=== PATIENT | female | born 1985 | race Caucasian/White ===

== ENCOUNTER 2017-12-17 10:58 | Emergency (ER) | payer BC, OTHER ==
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
[2017-12-17 12:19] VITALS: BP 120/78
== END 2017-12-17 12:16 | disposition home or self-care (01) ==
LOC: MW.ED 10:58
DX: Z34.92 Encounter for supervision of normal pregnancy, unspecified, second trimester (principal); F17.210 Nicotine dependence, cigarettes, uncomplicated; Z79.899 Other long term (current) drug therapy; Z3A.18 18 weeks gestation of pregnancy
CPT/HCPCS: 76815; 76815-26; 99283

== ENCOUNTER 2018-04-25 17:06 | Inpatient (IN) | payer BC, OTHER ==
[2018-04-25] MEDS ORDERED: Sodium Chloride 0.9% 2.5 ML Syringe FLUSH PRN ×2 (20:26→21:02)
[2018-04-25] MEDS ORDERED: Nalbuphine 10 MG/1 ML Vial IVPUSH PRN (20:26)
[2018-04-25] MEDS ORDERED: Lidocaine 1% 50 ML MDV INJECT PRN (20:26)
[2018-04-25] MEDS ORDERED: Butorphanol 1 MG/ML SDV IVPUSH PRN (20:26)
[2018-04-25] MEDS ORDERED: Misoprostol 200 MCG Tab PO PRN (20:26)
[2018-04-25] MEDS ORDERED: Carboprost Tromethamine 250 MCG/1 ML Amp IM PRN (20:26)
[2018-04-25] MEDS ORDERED: Tranexamic Acid 1,000 MG in Sodium Chloride 0.9% 100 ML IV PRN (20:26)
[2018-04-25] MEDS ORDERED: Water For Irrigation,Sterile 1,000 ML Container IRR PRN (20:26)
[2018-04-25] MEDS ORDERED: Methylergonovine 0.2 MG/1 ML Amp IM PRN (20:26)
[2018-04-25] MEDS ORDERED: Sodium Chloride 0.9% 10 ML Syringe FLUSH PRN ×2 (20:26→21:02)
[2018-04-25] MEDS ORDERED: Oxytocin/0.9 % Sodium Chloride 30 UNIT/500 ML BAG IV SCH ×2 (20:30→21:15)
[2018-04-25] MEDS: Lactated Ringers 1,000 ML IV SCH ×2 (20:42→21:18)
[2018-04-25] MEDS ORDERED: ceFAZolin 2 GM in Premix Bag 1 BAG IV ONE (21:02)
[2018-04-25] MEDS ORDERED: Citric Acid/Sodium Citrate Solution 30 ML Cup PO SCH (21:15)
[2018-04-25] MEDS ORDERED: Lactated Ringers 1,000 ML IV SCH ×2 (21:15→23:00)
[2018-04-25] MEDS ORDERED: ceFAZolin 1 GM Vial ONE ×2 (21:43)
[2018-04-25] MEDS ORDERED: Ondansetron 4 MG/2 ML SDV ONE (21:43)
[2018-04-25] MEDS ORDERED: Oxytocin 10 Units/1 ML SDV ONE (21:43)
[2018-04-25] MEDS ORDERED: Morphine PF 1 MG/ML Amp ONE (21:43)
[2018-04-25] MEDS ORDERED: ePHEDrine 50 MG/ML SDV ONE (21:43)
[2018-04-25] MEDS ORDERED: Sodium Chloride 0.9% 20 ML ONE ×2 (21:43)
--- NOTE | 2018-04-25 21:54 | PCM.PREANE ---
Preanesthetic Assessment - Procedure Proposed Procedure: primary - Anesthesia/Transfusion/Family Hx Anesthesia History: Prior Anesthesia Without Reaction Family History of Anesthesia Reaction: No Intubation History: Unknown - Review of Systems General: Other (active labor; intolerant) Pulmonary: No Symptoms Cardiovascular: No Symptoms Gastrointestinal: Other (GERD) Neurological: Other (acive labor contractions) Other: Reports: Diabetes (gestational; arrival glucose 50s and kacie 80s) - Physical Assessment NPO Status Date: 04/25/18 NPO Status Time: 15:00 Height: 5 ft 4 in Weight: 238 lb ASA Class: 2E Mental Status: Alert & Oriented x3 Airway Class: Mallampati = 2 Dentition: Reports: Normal Dentition Thyro-Mental Finger Breadths: 3 Mouth Opening Finger Breadths: 3 ROM/Head Extension: Full Lungs: Clear to Auscultation, Normal Respiratory Effort Cardiovascular: Regular Rate, Regular Rhythm, No Murmurs - Lab Values: Laboratory Last Values WBC 17.00 K/uL (4.0-11.0) H 04/25/18 20:38 RBC 4.41 M/uL (4.30-5.90) 04/25/18 20:38 Hgb 13.1 g/dL (12.0-16.0) 04/25/18 20:38 Hct 38.5 % (36.0-46.0) 04/25/18 20:38 MCV 87.3 fL (80.0-98.0) 04/25/18 20:38 MCH 29.7 pg (27.0-32.0) 04/25/18 20:38 MCHC 34.0 g/dL (31.0-37.0) 04/25/18 20:38 RDW Std Deviation 42.5 fl (28.0-62.0) 04/25/18 20:38 RDW Coeff of Fuentes 13 % (11.0-15.0) 04/25/18 20:38 Plt Count 255 K/uL (150-400) 04/25/18 20:38 MPV 10.50 fL (7.40-12.00) 04/25/18 20:38 Nucleated RBC % 0.0 /100WBC 04/25/18 20:38 Nucleated RBCs # 0 K/uL 04/25/18 20:38 POC Glucose 82 mg/dL (60-110) 04/25/18 21:14 Hemoglobin A1c 6.2 % (4.5-6.2) 04/25/18 20:38 - Allergies Allergies/Adverse Reactions: Allergies Allergy/AdvReac Type Severity Reaction Status Date / Time No Known Allergies Allergy Verified 04/25/18 17:37 - Blood Blood Available: No - Anesthesia Plan Pre-Op Medication Ordered: None (Emergent without chart visualized; exam and discussion in short bits with and patient) - Acknowledgements Anesthesia Type Planned: Spinal Pt an Appropriate Candidate for the Planned Anesthesia: Yes Alternatives and Risks of Anesthesia Discussed w Pt/Guardian: Yes Pt/Guardian Understands and Agrees with Anesthesia Plan: Yes PreAnesthesia Questionnaire HEENT History: Reports: None Cardiovascular History: Reports: None Respiratory History: Reports: None Gastrointestinal History: Reports: None Genitourinary History: Reports: Renal Calculus 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: Musculoskeletal History: Reports: None Neurological History: Reports: None Psychiatric History: Reports: None Endocrine/Metabolic History: Reports: Diabetes, Gestational Hematologic History: Reports: None Immunologic History: Reports: None Oncologic (Cancer) History: Reports: None Dermatologic History: Reports: None - Infectious Disease History Infectious Disease History: Reports: Chicken Pox - Past Surgical History Head Surgeries/Procedures: Reports: None HEENT Surgical History: Reports: None Cardiovascular Surgical History: Reports: None Respiratory Surgical History: Reports: None GI Surgical History: Reports: None Female Surgical History: Reports: None Endocrine Surgical History: Reports: None Neurological Surgical History: Reports: None Musculoskeletal Surgical History: Reports: None Oncologic Surgical History: Reports: None Dermatological Surgical History: Reports: None - HOME MEDS Home Medications: Home Meds glyBURIDE [Micronase] 2.5 mg PO BEDTIME 12/17/17 [History] glyBURIDE [Micronase] 7.5 mg PO ACBREAKFAST 12/17/17 [History] Loratadine [Claritin] 10 mg PO DAILY 04/17/18 [History] Vit W-Ca,Fe,FA(<1 mg) [ Vitamins] 1 tab PO DAILY 04/17/18 [ History] - CURRENT (IN HOUSE) MEDS Current Meds: Current Medications Butorphanol Tartrate (Stadol) 1 mg IVPUSH Q1H PRN PRN Reason: Pain Carboprost Tromethamine (Hemabate Ds) 250 mcg IM ASDIRECTED PRN PRN Reason: Post Hemorrhage Citric Acid/Sodium Citrate (Bicitra Solution) 30 ml PO .ONCE RENÉ Tranexamic Acid 1,000 mg/ (Sodium Chloride) 110 mls @ 660 mls/hr IV ONETIME PRN PRN Reason: Bleeding Lactated Ringer's (Ringers, Lactated) 1,000 mls @ 150 mls/hr IV ASDIRECTED [facility] Last Admin: 04/25/18 21:18 Dose: 999 mls/hr Oxytocin/Sodium Chloride (Oxytocin 30 Unit/500 Ml-Ns) 30 unit in 500 mls @ 999 mls/hr IV TITRATE RENÉ Oxytocin/Sodium Chloride (Oxytocin 30 Unit/500 Ml-Ns) 30 unit in 500 mls @ 250 mls/hr IV TITRATE RENÉ Lactated Ringer's (Ringers, Lactated) 1,000 mls @ 500 mls/hr IV .BOLUS RENÉ Lidocaine HCl (Xylocaine 1%) 50 ml INJECT .ONCE PRN PRN Reason: Laceration repair Methylergonovine Maleate (Methergine) 0.2 mg IM ASDIRECTED PRN PRN Reason: Post Hemorrhage Misoprostol (Cytotec) 200 mcg PO .ONCE PRN PRN Reason: Post Hemorrhage Nalbuphine HCl (Nubain) 10 mg IVPUSH Q1H PRN PRN Reason: Pain (severe 7-10) Sodium Chloride (Saline Flush) 10 ml FLUSH ASDIRECTED PRN PRN Reason: Keep Vein Open Sodium Chloride (Saline Flush) 2.5 ml FLUSH ASDIRECTED PRN PRN Reason: Keep Vein Open Sodium Chloride (Saline Flush) 10 ml FLUSH ASDIRECTED PRN PRN Reason: Keep Vein Open Sodium Chloride (Saline Flush) 2.5 ml FLUSH ASDIRECTED PRN PRN Reason: Keep Vein Open Sterile Water (Sterile Water For Irrigation) 1,000 ml IRR ASDIRECTED PRN PRN Reason: delivery Discontinued Medications Cefazolin Sodium (Ancef) Confirm Administered Dose 2 gm .ROUTE .STK-MED ONE Stop: 04/25/18 21:44 Cefazolin Sodium (Ancef) Confirm Administered Dose 1 gm .ROUTE .STK-MED ONE Stop: 04/25/18 21:44 Ephedrine Sulfate (Ephedrine Sulfate) Confirm Administered Dose 50 mg .ROUTE .STK-MED ONE Stop: 04/25/18 21:44 Cefazolin Sodium/Dextrose 2 gm (/ Premix) 50 mls @ 100 mls/hr IV ONETIME ONE Stop: 04/25/18 21:31 Sodium Chloride (Normal Saline) Confirm Administered Dose 20 mls @ as directed .ROUTE .STK-MED ONE Stop: 04/25/18 21:44 Sodium Chloride (Normal Saline) Confirm Administered Dose 20 mls @ as directed .ROUTE .STK-MED ONE Stop: 04/25/18 21:44 Morphine Sulfate (Duramorph Pf) Confirm Administered Dose 1 mg .ROUTE .STK-MED ONE Stop: 04/25/18 21:44 Ondansetron HCl (Zofran) Confirm Administered Dose 4 mg .ROUTE .STK-MED ONE Stop: 04/25/18 21:44 Oxytocin (Pitocin) Confirm Administered Dose 20 unit .ROUTE .STK-MED ONE Stop: 04/25/18 21:44
[2018-04-25] MEDS ORDERED: Naloxone 0.4 MG/ML Syringe IVPUSH PRN (21:58)
[2018-04-25] MEDS ORDERED: fentaNYL 100 MCG/2 ML SDV ONE (22:15)
[2018-04-25] MEDS ORDERED: Metoclopramide 10 MG/2 ML SDV ONE (22:19)
[2018-04-25] MEDS ORDERED: diphenhydrAMINE 50 MG/ML SDV IVPUSH PRN (22:53)
[2018-04-25] MEDS ORDERED: Lanolin 100% Cream 7 GM Tube TOP PRN (22:53)
[2018-04-25] MEDS ORDERED: Bisacodyl 10 MG Supp RECTAL PRN (22:53)
[2018-04-25] MEDS ORDERED: Acetaminophen/oxyCODONE 325-5 MG Tab PO PRN ×2 (22:53)
--- NOTE | 2018-04-25 23:14 | PCM.OPNOTE ---
- General Post-Op/Procedure Note Date of Surgery/Procedure: 04/25/18 Operative Procedure(s): Primary Findings: Mle , Wt 9lbs 13oz, Apgars 8 and 9. Copious amount of free fluid. No nuchal cord. Grossly normal placenta with 3 vessel cord. Normal uterus, tubes and ovaries Pre Op Diagnosis: 1) IUP 37weeks adn 1 day, active labor. 2)Suspected macrosomia,. 3) Polyhydramnios. 4) GDMA2 on glyburide Post-Op Diagnosis: Same Anesthesia Technique: Spinal Primary Surgeon: Ellie Zurita Pathology: Placenta Fluid Replacement, Intraop: 2,200 Output, Urine Amount: 175 EBL in mLs: 800 Complications: None Condition: Good
--- NOTE | 2018-04-25 23:22 | PCM.POSTAN ---
POST ANESTHESIA ASSESSMENT - MENTAL STATUS Mental Status: Alert, Oriented - RESPIRATORY Respiratory Status: Respiratory Rate WNL, Airway Patent, O2 Saturation Stable - CARDIOVASCULAR CV Status: Pulse Rate WNL, Blood Pressure Stable - GASTROINTESTINAL GI Status: No Symptoms - PAIN Pain Score: 0 - POST OP HYDRATION Hydration Status: Adequate & Stable
[2018-04-25] MEDS: Ketorolac 30 MG/ML SDV IVPUSH SCH (23:44)
--- NOTE | 2018-04-26 01:01 | OR ---
SURGEON: Ellie Zurita MD DATE OF PROCEDURE: 04/25/2018 PREOPERATIVE DIAGNOSES: 1. Intrauterine at 37 weeks and 1 day in active labor. 2. Suspected macrosomia. 3. Polyhydramnios. 4. Gestational diabetes, glyburide controlled. POSTOPERATIVE DIAGNOSES: 1. Intrauterine at 37 weeks and 1 day in active labor. 2. Polyhydramnios. 3. Gestational diabetes, glyburide controlled. 4. Macrosomic baby 5. Delivered. PROCEDURE: Primary section. ANESTHESIA: Spinal. ESTIMATED BLOOD LOSS: 800 mL. IV FLUIDS: 2200 mL of crystalloid. URINE OUTPUT: 175 mL clear at the end of the procedure. COMPLICATIONS: None. DISPOSITION: The patient was stable to recovery room. FINDINGS: Male , weight 9 pounds 13 ounces. scores 8 and 9 at one and five minutes respectively. Grossly normal placenta with 3-vessel cord. Normal- appearing uterus, tubes, and ovary. BRIEF HISTORY: The patient is a G5, P3, who was admitted in early stages of labor at about 5: 30pm this evening at 37 weeks and 1 day gestation. She was re-examined 2 hours later, she had made progress to 5 cm from an earlier vaginal examination of 2 cm. The patient's care is complicated by gestational diabetes controlled on glyburide which is complicated by polyhydramnios (LAWRENCE was 35 cm on a biophysical profile performed within the last 24 hours for an non reactive NST ). The patient was also diagnosed with suspected macrosomia with an estimated weight on ultrasound at 36 weeks and 6 days of 10 pounds 8 ounces. The patient reported that she had originally been scheduled for her induction of labor on the and a primary section on the pending further discussion with her provider,Dr. Montoya at the clinic. She was velvet every 1 to 3 minutes with a reassuring heart tracing. Based on the estimated weight at this gestational age, I discussed the increased risk of shoulder dystocia with a vaginal delivery with the couple and the alternative mode of delivery, a section, risks and benefits given the variables encountered. I explained to the couple that even though sonographic estimation of weight could be off by 20%, in the 3rd trimester, there is a well-known correlation of an increased risk of shoulder dystocia with fetuses measuring over 4000 g especially in a diabetic mother with what seemed to be a poor control based on her polyhydramnios and also a hemoglobin A1c of 6.2. After extensive discussion with the couple, they accepted to proceed with a section. Appropriate consent was obtained. DESCRIPTION OF PROCEDURE: The patient was taken to the operating room, where a spinal anesthesia was performed and found to be adequate. She was then placed in dorsal supine position with a leftward tilt and prepped and draped in a sterile fashion for a section. SCDs were in place and she received 2 g of Ancef. A time-out was held. Due to the extensive pannus and the anterior abdominal wall edema, I elected to perform the low abdominal transverse incision to reduce the risk of dehiscence. The incision type had been discussed with patient preoperatively. This incision was made with a scalpel approximately 2 fingerbreadths below the umbilicus. The incision was approximately 12 cm long and was carried down carefully to the fascia which was scored in the midline and extended laterally with the Reveles scissors. The superior aspect of the fascial incision was grasped with Aliyah clamps, elevated, and the underlying rectus muscle was dissected off with the Reveles. Attention was then turned to the inferior aspect of the fascial incision, which in similar fashion was grasped with Aliyah clamps, elevated and the underlying rectus muscles was dissected off with the Reveles. The rectus muscle was then in the midline until the parietal peritoneum was reached. The peritoneum was then entered sharply and then extended upwards and downwards with good visualization of the internal organs. The peritoneal incision was also further extended laterally by stretching. A self-retaining Clem O retractor was then placed into the abdominal cavity. The vesicouterine peritoneum was identified, picked up, and entered sharply with the Metzenbaum scissors and a bladder flap was created digitally. This was pushed down further. A low transverse uterine incision was made with a scalpel and extended upwards and downwards bluntly. Large amount amount of amniotic fluid was noted. The 's head was then lifted out of the pelvis and delivered atraumatically. The shoulders and the rest of the baby were then delivered atraumatically. The was vigorous and cried spontaneously at . The cord was double clamped and the infant was handed over to Dr. Todd, the wheel and axle inspector on-call. Cord blood and gas samples were obtained. The placenta was then removed spontaneously. The uterine cavity was cleaned of all clots and debris. The hysterotomy site was inspected and no extensions were noted. The hysterotomy site was then repaired in 2 layers using 0 Vicryl suture. The first layer was repaired in a running locked stitches and a second imbricating layer was performed to obtain excellent hemostasis. The ovaries and tubes were examined and found to be grossly normal in appearance. Copious irrigation was performed and the Clem O retractor was removed. The edges of the parietal peritoneum were identified and this layer was closed with 2-0 Vicryl in a running fashion. Further irrigation of the subfascial layer was performed and this was found to have excellent hemostasis. The edges of the fascia were identified and the fascia was closed in a running fashion with an 0 PDS suture. Subcutaneous tissue was made hemostatic with electrocautery. The subcutaneous layer was then reapproximated with 3-0 plain suture. The skin was closed with 4-0 Monocryl with subcuticular stitches. The patient tolerated the procedure well. Sponge, instrument, and needle counts were correct at the end of the procedure. The baby was taken to the nursery in stable condition and the patient to the recovery room. SHANTI / KIANNA /[id number] LAURITA
[2018-04-26] MEDS: Ondansetron 4 MG/2 ML SDV IV PRN ×2 (04:44→13:27)
[2018-04-26] MEDS: Ketorolac 30 MG/ML SDV IVPUSH SCH ×4 (05:08→23:26)
--- NOTE | 2018-04-26 08:47 | PCM.PNPP ---
- General Info Date of Service: 04/26/18 Functional Status: Reports: Pain Controlled, Tolerating Diet, Ambulating - Review of Systems General: Denies: Fever, Malaise, Chills HEENT: Denies: Headaches Pulmonary: Denies: Shortness of Breath, Pleuritic Chest Pain Cardiovascular: Denies: Chest Pain, Palpitations, Dyspnea on Exertion Gastrointestinal: Denies: Abdominal Pain Genitourinary: Denies: Flank Pain Psychiatric: Denies: Confusion, Mood Lability, Anxiety - General Info Date of Service: 04/26/18 - Patient Data Vital Signs - Most Recent: Last Vital Signs Temp 36.4 C 04/26/18 04:30 Pulse 71 04/26/18 06:30 Resp 16 04/26/18 06:30 BP 135/67 04/26/18 04:30 Pulse Ox 95 04/26/18 06:30 Weight - Most Recent: 238 lb I&O - Last 24 Hours: Intake & Output 04/25/18 04/26/18 04/26/18 22:59 06:59 14:59 Intake Total 6100 Output Total 175 1575 Balance -175 4525 Lab Results - Last 24 Hours: Laboratory Results - last 24 hr 04/25/18 04/25/18 04/25/18 Range/Units 20:08 20:38 20:38 WBC 17.00 H (4.0-11.0) K/uL RBC 4.41 (4.30-5.90) M/uL Hgb 13.1 (12.0-16.0) g/dL Hct 38.5 (36.0-46.0) % MCV 87.3 (80.0-98.0) fL MCH 29.7 (27.0-32.0) pg MCHC 34.0 (31.0-37.0) g/dL RDW Std Deviation 42.5 (28.0-62.0) fl RDW Coeff of Fuentes 13 (11.0-15.0) % Plt Count 255 (150-400) K/uL MPV 10.50 (7.40-12.00) fL Nucleated RBC % 0.0 /100WBC Nucleated RBCs # 0 K/uL Cord ABG pH (7.18-7.38) Cord ABG Base Excess (-10--2) Cord VBG pH (7.25-7.45) Cord VBG Base Excess (-10--2) POC Glucose 50 L (60-110) mg/dL Hemoglobin A1c (4.5-6.2) % Blood Type AB POSITIVE Antibody Screen NEGATIVE 04/25/18 04/25/18 04/25/18 Range/Units 20:38 21:14 21:54 WBC (4.0-11.0) K/uL RBC (4.30-5.90) M/uL Hgb (12.0-16.0) g/dL Hct (36.0-46.0) % MCV (80.0-98.0) fL MCH (27.0-32.0) pg MCHC (31.0-37.0) g/dL RDW Std Deviation (28.0-62.0) fl RDW Coeff of Fuentes (11.0-15.0) % Plt Count (150-400) K/uL MPV (7.40-12.00) fL Nucleated RBC % /100WBC Nucleated RBCs # K/uL Cord ABG pH 7.218 (7.18-7.38) Cord ABG Base Excess -5 (-10--2) Cord VBG pH 7.292 (7.25-7.45) Cord VBG Base Excess -4 (-10--2) POC Glucose 82 (60-110) mg/dL Hemoglobin A1c 6.2 (4.5-6.2) % Blood Type Antibody Screen 04/25/18 04/26/18 Range/Units 22:36 08:14 WBC (4.0-11.0) K/uL RBC (4.30-5.90) M/uL Hgb 11.5 L (12.0-16.0) g/dL Hct 33.8 L (36.0-46.0) % MCV (80.0-98.0) fL MCH (27.0-32.0) pg MCHC (31.0-37.0) g/dL RDW Std Deviation (28.0-62.0) fl RDW Coeff of Fuentes (11.0-15.0) % Plt Count (150-400) K/uL MPV (7.40-12.00) fL Nucleated RBC % /100WBC Nucleated RBCs # K/uL Cord ABG pH (7.18-7.38) Cord ABG Base Excess (-10--2) Cord VBG pH (7.25-7.45) Cord VBG Base Excess (-10--2) POC Glucose 89 (60-110) mg/dL Hemoglobin A1c (4.5-6.2) % Blood Type Antibody Screen Med Orders - Current: Current Medications Bisacodyl (Dulcolax) 10 mg RECTAL .ONCE PRN PRN Reason: Constipation Diphenhydramine HCl (Benadryl) 25 mg IVPUSH Q6H PRN PRN Reason: Itching or Nausea Last Admin: 04/26/18 05:06 Dose: 25 mg Docusate Sodium (Colace) 100 mg PO BID [facility] Emollient Ointment (Lansinoh Hpa) 0 gm TOP ASDIRECTED PRN PRN Reason: Sore Nipples Lactated Ringer's (Ringers, Lactated) 1,000 mls @ 125 mls/hr IV ASDIRECTED [facility] Last Admin: 04/25/18 23:51 Dose: 125 mls/hr Ibuprofen (Motrin) 800 mg PO Q8H PRN PRN Reason: mild pain or fever Ketorolac Tromethamine (Toradol) 30 mg IVPUSH Q6H [facility] Stop: 04/26/18 23:01 Last Admin: 04/26/18 05:08 Dose: 30 mg Naloxone HCl (Narcan) 0.1 mg IVPUSH ONETIME PRN PRN Reason: Respiratory Depression Stop: 04/26/18 21:59 Ondansetron HCl (Zofran) 4 mg IV Q4H PRN PRN Reason: Nausea/Vomiting Last Admin: 04/26/18 04:44 Dose: 4 mg Oxycodone/Acetaminophen (Percocet 325-5 Mg) 1 tab PO Q4H PRN PRN Reason: Pain (moderate 4-6) Oxycodone/Acetaminophen (Percocet 325-5 Mg) 2 tab PO Q4H PRN PRN Reason: Pain (moderate 4-6) Discontinued Medications Butorphanol Tartrate (Stadol) 1 mg IVPUSH Q1H PRN PRN Reason: Pain Carboprost Tromethamine (Hemabate Ds) 250 mcg IM ASDIRECTED PRN PRN Reason: Post Hemorrhage Cefazolin Sodium (Ancef) Confirm Administered Dose 2 gm .ROUTE .STK-MED ONE Stop: 04/25/18 21:44 Cefazolin Sodium (Ancef) Confirm Administered Dose 1 gm .ROUTE .STK-MED ONE Stop: 04/25/18 21:44 Citric Acid/Sodium Citrate (Bicitra Solution) 30 ml PO .ONCE RENÉ Ephedrine Sulfate (Ephedrine Sulfate) Confirm Administered Dose 50 mg .ROUTE .STK-MED ONE Stop: 04/25/18 21:44 Fentanyl (Sublimaze) Confirm Administered Dose 100 mcg .ROUTE .STK-MED ONE Stop: 04/25/18 22:16 Tranexamic Acid 1,000 mg/ (Sodium Chloride) 110 mls @ 660 mls/hr IV ONETIME PRN PRN Reason: Bleeding Lactated Ringer's (Ringers, Lactated) 1,000 mls @ 150 mls/hr IV ASDIRECTED ERNÉ Last Admin: 04/25/18 21:18 Dose: 999 mls/hr Oxytocin/Sodium Chloride (Oxytocin 30 Unit/500 Ml-Ns) 30 unit in 500 mls @ 999 mls/hr IV TITRATE [facility] Cefazolin Sodium/Dextrose 2 gm (/ Premix) 50 mls @ 100 mls/hr IV ONETIME ONE Stop: 04/25/18 21:31 Oxytocin/Sodium Chloride (Oxytocin 30 Unit/500 Ml-Ns) 30 unit in 500 mls @ 250 mls/hr IV TITRATE [facility] Lactated Ringer's (Ringers, Lactated) 1,000 mls @ 500 mls/hr IV .BOLUS [facility] Sodium Chloride (Normal Saline) Confirm Administered Dose 20 mls @ as directed .ROUTE .STK-MED ONE Stop: 04/25/18 21:44 Sodium Chloride (Normal Saline) Confirm Administered Dose 20 mls @ as directed .ROUTE .STK-MED ONE Stop: 04/25/18 21:44 Lidocaine HCl (Xylocaine 1%) 50 ml INJECT .ONCE PRN PRN Reason: Laceration repair Methylergonovine Maleate (Methergine) 0.2 mg IM ASDIRECTED PRN PRN Reason: Post Hemorrhage Metoclopramide HCl (Reglan) Confirm Administered Dose 10 mg .ROUTE .STK-MED ONE Stop: 04/25/18 22:20 Misoprostol (Cytotec) 200 mcg PO .ONCE PRN PRN Reason: Post Hemorrhage Morphine Sulfate (Duramorph Pf) Confirm Administered Dose 1 mg .ROUTE .STK-MED ONE Stop: 04/25/18 21:44 Nalbuphine HCl (Nubain) 10 mg IVPUSH Q1H PRN PRN Reason: Pain (severe 7-10) Ondansetron HCl (Zofran) Confirm Administered Dose 4 mg .ROUTE .STK-MED ONE Stop: 04/25/18 21:44 Oxytocin (Pitocin) Confirm Administered Dose 20 unit .ROUTE .STK-MED ONE Stop: 04/25/18 21:44 Sodium Chloride (Saline Flush) 10 ml FLUSH ASDIRECTED PRN PRN Reason: Keep Vein Open Sodium Chloride (Saline Flush) 2.5 ml FLUSH ASDIRECTED PRN PRN Reason: Keep Vein Open Sodium Chloride (Saline Flush) 10 ml FLUSH ASDIRECTED PRN PRN Reason: Keep Vein Open Sodium Chloride (Saline Flush) 2.5 ml FLUSH ASDIRECTED PRN PRN Reason: Keep Vein Open Sterile Water (Sterile Water For Irrigation) 1,000 ml IRR ASDIRECTED PRN PRN Reason: delivery - Infant Interaction Infant Disposition, : Friona to Nursery Interaction: Unable to Hold Infant at this Time Feeding: Bottle Fed Infant Support Person: - Recovery Exam Fundal Tone: Firm Fundal Level: At Umbilicus Fundal Placement: Midline Lochia Amount: Small Lochia Color: Rubra/Red Perineum Description: Intact, Minimal Bruising/Swelling Bladder Status: Nonpalpable Urinary Elimination: Indwelling Catheter - Exam General: Alert, Oriented Lungs: Clear to Auscultation, Normal Respiratory Effort Cardiovascular: Regular Rate, Regular Rhythm Extremities: Non-Tender, Pedal Edema Wound/Incisions: Dressing Dry and Intact Psy/Mental Status: Alert, Normal Affect, Normal Mood - Problem List & Annotations (1) delivery delivered SNOMED Code(s): 976607135 Code(s): O82 - ENCOUNTER FOR DELIVERY WITHOUT INDICATION Status: Acute Current Visit: Yes (2) macrosomia, delivered, current hospitalization SNOMED Code(s): 74752799, 731608960 Code(s): O36.60X0 - MATERNAL CARE FOR EXCESS GROWTH, UNSP TRIMESTER, UNSP Status: Acute Current Visit: Yes (3) Gestational diabetes mellitus (GDM) during controlled on oral hypoglycemic therapy SNOMED Code(s): 39215275, 67350261, 134263873 Code(s): O24.415 - GESTATNL DIABETES IN PREG, CTRL BY ORAL HYPOGLYCEMIC DRUGS Status: Acute Current Visit: Yes - Problem List Review Problem List Initiated/Reviewed/Updated: Yes - My Orders Last 24 Hours: My Active Orders 04/25/18 20:26 May Shower [RC] ASDIRECTED Notify Provider [RC] PRN Up ad Jennifer [RC] ASDIRECTED 04/25/18 21:03 Notify Provider Vital Signs [RC] PRN 04/25/18 22:53 Patient Status [ADT] Routine Ambulate [RC] PER UNIT ROUTINE Communication Order [RC] PER UNIT ROUTINE May Shower [RC] ASDIRECTED RT Incentive Spirometry [RC] Q2HWA Urinary Catheter Removal [RC] Per Unit Routine Acetaminophen/oxyCODONE [Percocet 325-5 MG] 1 tab PO Q4H PRN Acetaminophen/oxyCODONE [Percocet 325-5 MG] 2 tab PO Q4H PRN Bisacodyl [Dulcolax] 10 mg RECTAL .ONCE PRN Ibuprofen [Motrin] 800 mg PO Q8H PRN Lanolin [Lansinoh HPA] See Dose Instructions TOP ASDIRECTED PRN Ondansetron [Zofran] 4 mg IV Q4H PRN diphenhydrAMINE [Benadryl] 25 mg IVPUSH Q6H PRN Abdominal Binder [OM.PC] Routine Assess Lochia [WOMSER] Per Unit Routine Assess Uterine Involution [WOMSER] Per Unit Routine Breast Pump [WOMSER] Per Unit Routine Peripheral IV Discontinue [OM.PC] Routine Sequential Compression Device [OM.PC] Per Unit Routine Resuscitation Status Routine 04/25/18 22:55 Notify Provider Intake and Out [RC] ASDIRECTED Notify Provider Vital Signs [RC] ASDIRECTED 04/25/18 23:00 Intake and Output [RC] Q4H Ketorolac [Toradol] 30 mg IVPUSH Q6H Lactated Ringers [Ringers, Lactated] 1,000 ml IV ASDIRECTED 04/26/18 09:00 Docusate Sodium [Colace] 100 mg PO BID 04/26/18 Breakfast Regular Diet [DIET] - Assessment Assessment:: POD#1 s/p Primar for macrosomia in a diabetic mother. Doing well this morning. Post op hgb 11.3g/dl - Plan Plan:: Remove colin, ambulate ad jennifer. Continue current care
--- NOTE | 2018-04-26 08:54 | PCM48HPAN ---
Post Anesthesia Note - EVALUATION WITHIN 48HRS OF ANESTHETIC Vital Signs in Normal Range: Yes Patient Participated in Evaluation: Yes Respiratory Function Stable: Yes Airway Patent: Yes Cardiovascular Function Stable: Yes Hydration Status Stable: Yes Pain Control Satisfactory: Yes Nausea and Vomiting Control Satisfactory: Yes Mental Status Recovered: Yes Resp Rate: 16
[2018-04-26] MEDS: Docusate Sodium 100 MG Cap PO SCH ×2 (15:57→21:30)
[2018-04-27] MEDS: Docusate Sodium 100 MG Cap PO SCH ×2 (14:07→20:59)
[2018-04-27] MEDS: Ibuprofen 800 MG Tab PO PRN (14:07)
[2018-04-28] MEDS: Ibuprofen 800 MG Tab PO PRN (03:50)
[2018-04-28 08:50] VITALS: BP 144/93
[2018-04-28] MEDS: Docusate Sodium 100 MG Cap PO SCH (08:54)
--- NOTE | 2018-04-28 10:27 | PCM.PNPP ---
- General Info Date of Service: 04/27/18 Functional Status: Reports: Pain Controlled, Tolerating Diet, Ambulating, Urinating - Review of Systems General: Reports: No Symptoms HEENT: Reports: No Symptoms Pulmonary: Reports: No Symptoms Cardiovascular: Reports: No Symptoms Gastrointestinal: Reports: No Symptoms Genitourinary: Reports: No Symptoms Musculoskeletal: Reports: No Symptoms Skin: Reports: No Symptoms Neurological: Reports: No Symptoms Psychiatric: Reports: No Symptoms - General Info Date of Service: 04/28/18 - Patient Data Vital Signs - Most Recent: Last Vital Signs Temp 36.8 C 04/28/18 07:20 Pulse 81 04/28/18 07:20 Resp 18 04/28/18 07:20 BP 144/93 H 04/28/18 07:20 Pulse Ox 96 04/28/18 07:20 Weight - Most Recent: 107.955 kg Med Orders - Current: Current Medications Bisacodyl (Dulcolax) 10 mg RECTAL .ONCE PRN PRN Reason: Constipation Diphenhydramine HCl (Benadryl) 25 mg IVPUSH Q6H PRN PRN Reason: Itching or Nausea Last Admin: 04/26/18 05:06 Dose: 25 mg Docusate Sodium (Colace) 100 mg PO BID RENÉ Last Admin: 04/28/18 08:54 Dose: 100 mg Emollient Ointment (Lansinoh Hpa) 0 gm TOP ASDIRECTED PRN PRN Reason: Sore Nipples Lactated Ringer's (Ringers, Lactated) 1,000 mls @ 125 mls/hr IV ASDIRECTED [facility] Last Admin: 04/25/18 23:51 Dose: 125 mls/hr Ibuprofen (Motrin) 800 mg PO Q8H PRN PRN Reason: mild pain or fever Last Admin: 04/28/18 03:50 Dose: 800 mg Ondansetron HCl (Zofran) 4 mg IV Q4H PRN PRN Reason: Nausea/Vomiting Last Admin: 04/26/18 13:27 Dose: 4 mg Oxycodone/Acetaminophen (Percocet 325-5 Mg) 1 tab PO Q4H PRN PRN Reason: Pain (moderate 4-6) Last Admin: 04/27/18 20:59 Dose: 1 tab Oxycodone/Acetaminophen (Percocet 325-5 Mg) 2 tab PO Q4H PRN PRN Reason: Pain (moderate 4-6) Last Admin: 04/27/18 05:57 Dose: 2 tab Discontinued Medications Butorphanol Tartrate (Stadol) 1 mg IVPUSH Q1H PRN PRN Reason: Pain Carboprost Tromethamine (Hemabate Ds) 250 mcg IM ASDIRECTED PRN PRN Reason: Post Hemorrhage Cefazolin Sodium (Ancef) Confirm Administered Dose 2 gm .ROUTE .STK-MED ONE Stop: 04/25/18 21:44 Cefazolin Sodium (Ancef) Confirm Administered Dose 1 gm .ROUTE .STK-MED ONE Stop: 04/25/18 21:44 Citric Acid/Sodium Citrate (Bicitra Solution) 30 ml PO .ONCE RENÉ Ephedrine Sulfate (Ephedrine Sulfate) Confirm Administered Dose 50 mg .ROUTE .STK-MED ONE Stop: 04/25/18 21:44 Fentanyl (Sublimaze) Confirm Administered Dose 100 mcg .ROUTE .STK-MED ONE Stop: 04/25/18 22:16 Tranexamic Acid 1,000 mg/ (Sodium Chloride) 110 mls @ 660 mls/hr IV ONETIME PRN PRN Reason: Bleeding Lactated Ringer's (Ringers, Lactated) 1,000 mls @ 150 mls/hr IV ASDIRECTED [facility] Last Admin: 04/25/18 21:18 Dose: 999 mls/hr Oxytocin/Sodium Chloride (Oxytocin 30 Unit/500 Ml-Ns) 30 unit in 500 mls @ 999 mls/hr IV TITRATE RENÉ Cefazolin Sodium/Dextrose 2 gm (/ Premix) 50 mls @ 100 mls/hr IV ONETIME ONE Stop: 04/25/18 21:31 Oxytocin/Sodium Chloride (Oxytocin 30 Unit/500 Ml-Ns) 30 unit in 500 mls @ 250 mls/hr IV TITRATE REN[facility] Lactated Ringer's (Ringers, Lactated) 1,000 mls @ 500 mls/hr IV .BOLUS RENÉ Sodium Chloride (Normal Saline) Confirm Administered Dose 20 mls @ as directed .ROUTE .STK-MED ONE Stop: 04/25/18 21:44 Sodium Chloride (Normal Saline) Confirm Administered Dose 20 mls @ as directed .ROUTE .STK-MED ONE Stop: 04/25/18 21:44 Ketorolac Tromethamine (Toradol) 30 mg IVPUSH Q6H [facility] Stop: 04/26/18 23:01 Last Admin: 04/26/18 23:26 Dose: 30 mg Lidocaine HCl (Xylocaine 1%) 50 ml INJECT .ONCE PRN PRN Reason: Laceration repair Methylergonovine Maleate (Methergine) 0.2 mg IM ASDIRECTED PRN PRN Reason: Post Hemorrhage Metoclopramide HCl (Reglan) Confirm Administered Dose 10 mg .ROUTE .STK-MED ONE Stop: 04/25/18 22:20 Misoprostol (Cytotec) 200 mcg PO .ONCE PRN PRN Reason: Post Hemorrhage Morphine Sulfate (Duramorph Pf) Confirm Administered Dose 1 mg .ROUTE .STK-MED ONE Stop: 04/25/18 21:44 Nalbuphine HCl (Nubain) 10 mg IVPUSH Q1H PRN PRN Reason: Pain (severe 7-10) Naloxone HCl (Narcan) 0.1 mg IVPUSH ONETIME PRN PRN Reason: Respiratory Depression Stop: 04/26/18 21:59 Ondansetron HCl (Zofran) Confirm Administered Dose 4 mg .ROUTE .STK-MED ONE Stop: 04/25/18 21:44 Oxytocin (Pitocin) Confirm Administered Dose 20 unit .ROUTE .STK-MED ONE Stop: 04/25/18 21:44 Sodium Chloride (Saline Flush) 10 ml FLUSH ASDIRECTED PRN PRN Reason: Keep Vein Open Sodium Chloride (Saline Flush) 2.5 ml FLUSH ASDIRECTED PRN PRN Reason: Keep Vein Open Sodium Chloride (Saline Flush) 10 ml FLUSH ASDIRECTED PRN PRN Reason: Keep Vein Open Sodium Chloride (Saline Flush) 2.5 ml FLUSH ASDIRECTED PRN PRN Reason: Keep Vein Open Sterile Water (Sterile Water For Irrigation) 1,000 ml IRR ASDIRECTED PRN PRN Reason: delivery - Interaction Infant Disposition, : to Nursery Infant Interaction: Unable to Hold at this Time Infant Feeding: Bottle Fed Infant Support Person: - Recovery Exam Fundal Tone: Firm Fundal Level: 1 Fingerbreadths Below Umbilicus Fundal Placement: Midline Lochia Amount: Scant Lochia Color: Rubra/Red Perineum Description: Intact, Minimal Bruising/Swelling Episiotomy/Laceration: None Bladder Status: Voiding Urinary Elimination: Voided - Exam General: Alert, Oriented, Cooperative, No Acute Distress Lungs: Clear to Auscultation, Normal Respiratory Effort Cardiovascular: Regular Rate, Regular Rhythm, No Murmurs GI/Abdominal Exam: Normal Bowel Sounds, Soft, Non-Tender, No Organomegaly, No Distention, No Abnormal Bruit, No Mass, Pelvis Stable Extremities: Normal Inspection, Normal Range of Motion, Non-Tender, No Pedal Edema, Normal Capillary Refill Skin: Warm, Dry, Intact Wound/Incisions: Healing Well, Dressing Dry and Intact, No Drainage Neurological: No New Focal Deficit, Normal Gait, Normal Speech, Normal Tone, Strength Equal Bilateral - Problem List & Annotations (1) delivery delivered SNOMED Code(s): 604707864 Code(s): O82 - ENCOUNTER FOR DELIVERY WITHOUT INDICATION Status: Acute Priority: High Current Visit: Yes (2) Gestational diabetes mellitus (GDM) during controlled on oral hypoglycemic therapy SNOMED Code(s): 90607588, 35906706, 245324257 Code(s): O24.415 - GESTATNL DIABETES IN PREG, CTRL BY ORAL HYPOGLYCEMIC DRUGS Status: Acute Priority: High Current Visit: Yes - Problem List Review Problem List Initiated/Reviewed/Updated: Yes - Assessment Assessment:: POD#1 s/p Primar for macrosomia in a diabetic mother. Doing well this morning. Post op hgb 11.3g/dl DOD#2 s/p PCS doing very well, out of bed walking, colin out. Pain well mngd. Dressing intact no drainage in IV due to tachypnea - Plan Plan:: Remove colin, ambulate ad sunil. Continue current care POD#2 Continue pp plan of care
--- NOTE | 2018-04-28 10:32 | PCM.DCSUM1 ---
Discharge Summary - Hospital Course Free Text/Narrative:: Discharge home with infant. Follow up 1wk for post op check and then 6 weeks for post . Diagnosis: Stroke: No - Discharge Data Discharge Date: 04/28/18 Discharge Disposition: Home, Self-Care 01 Condition: Good - Discharge Diagnosis/Problem(s) (1) delivery delivered SNOMED Code(s): 786173616 ICD Code: O82 - ENCOUNTER FOR DELIVERY WITHOUT INDICATION Status: Acute Priority: High Current Visit: Yes (2) Gestational diabetes mellitus (GDM) during controlled on oral hypoglycemic therapy SNOMED Code(s): 84139290, [id number], [id number] ICD Code: O24.415 - GESTATNL DIABETES IN PREG, CTRL BY ORAL HYPOGLYCEMIC DRUGS Status: Acute Priority: High Current Visit: Yes - Patient Summary/Data Operative Procedure(s) Performed: Primary - Patient Instructions Diet: Regular Diet as Tolerated Activity: As Tolerated, No Strenuous Activities, Rest and Relax Today Driving: Do Not Drive Showering/Bathing: May Shower, No Tub Bathing/Swimming Wound/Incision Care: Keep Operative Site/Wound Site Clean and Dry Notify Provider of: Fever, Increased Pain, Swelling and Redness, Nausea and/or Vomiting Other/Special Instructions: Nothing per vagina for 6 weeks. Call office if fever over 101 F, uncontrolled pain or bleeding more than a large pad per hour. May use over the counter ibuprofen or Tylenol for pain. Continue to take vitamins while . - Discharge Plan *PRESCRIPTION DRUG MONITORING PROGRAM REVIEWED*: Not Applicable *COPY OF PRESCRIPTION DRUG MONITORING REPORT IN PATIENT TORI: Not Applicable Home Medications: Home Meds glyBURIDE [Micronase] 2.5 mg PO BEDTIME 12/17/17 [History] glyBURIDE [Micronase] 7.5 mg PO ACBREAKFAST 12/17/17 [History] Loratadine [Claritin] 10 mg PO DAILY 04/17/18 [History] Vit W-Ca,Fe,FA(<1 mg) [ Vitamins] 1 tab PO DAILY 04/17/18 [ History] Patient Handouts: Delivery, Care After Referrals: [facility] [Outside] Suzette Mason CNM [Primary Care Provider] - (1 week - May 03 at 9:00 am with Suzette Mason 6 week - June 07 at 10:45 am with Suzette Mason ) - General Info Date of Service: 04/28/18 Functional Status: Reports: Pain Controlled, Tolerating Diet, Ambulating, Urinating - Review of Systems General: Reports: No Symptoms HEENT: Reports: No Symptoms Pulmonary: Reports: No Symptoms Cardiovascular: Reports: No Symptoms Gastrointestinal: Reports: No Symptoms Genitourinary: Reports: No Symptoms Musculoskeletal: Reports: No Symptoms Skin: Reports: No Symptoms Neurological: Reports: No Symptoms Psychiatric: Reports: No Symptoms - Patient Data Vitals - Most Recent: Last Vital Signs Temp 36.8 C 04/28/18 07:20 Pulse 81 04/28/18 07:20 Resp 18 04/28/18 07:20 BP 144/93 H 04/28/18 07:20 Pulse Ox 96 04/28/18 07:20 Weight - Most Recent: 107.955 kg Med Orders - Current: Current Medications Bisacodyl (Dulcolax) 10 mg RECTAL .ONCE PRN PRN Reason: Constipation Diphenhydramine HCl (Benadryl) 25 mg IVPUSH Q6H PRN PRN Reason: Itching or Nausea Last Admin: 04/26/18 05:06 Dose: 25 mg Docusate Sodium (Colace) 100 mg PO BID RENÉ Last Admin: 04/28/18 08:54 Dose: 100 mg Emollient Ointment (Lansinoh Hpa) 0 gm TOP ASDIRECTED PRN PRN Reason: Sore Nipples Lactated Ringer's (Ringers, Lactated) 1,000 mls @ 125 mls/hr IV ASDIRECTED [facility] Last Admin: 04/25/18 23:51 Dose: 125 mls/hr Ibuprofen (Motrin) 800 mg PO Q8H PRN PRN Reason: mild pain or fever Last Admin: 04/28/18 03:50 Dose: 800 mg Ondansetron HCl (Zofran) 4 mg IV Q4H PRN PRN Reason: Nausea/Vomiting Last Admin: 04/26/18 13:27 Dose: 4 mg Oxycodone/Acetaminophen (Percocet 325-5 Mg) 1 tab PO Q4H PRN PRN Reason: Pain (moderate 4-6) Last Admin: 04/27/18 20:59 Dose: 1 tab Oxycodone/Acetaminophen (Percocet 325-5 Mg) 2 tab PO Q4H PRN PRN Reason: Pain (moderate 4-6) Last Admin: 04/27/18 05:57 Dose: 2 tab Discontinued Medications Butorphanol Tartrate (Stadol) 1 mg IVPUSH Q1H PRN PRN Reason: Pain Carboprost Tromethamine (Hemabate Ds) 250 mcg IM ASDIRECTED PRN PRN Reason: Post Hemorrhage Cefazolin Sodium (Ancef) Confirm Administered Dose 2 gm .ROUTE .STK-MED ONE Stop: 04/25/18 21:44 Cefazolin Sodium (Ancef) Confirm Administered Dose 1 gm .ROUTE .STK-MED ONE Stop: 04/25/18 21:44 Citric Acid/Sodium Citrate (Bicitra Solution) 30 ml PO .ONCE RENÉ Ephedrine Sulfate (Ephedrine Sulfate) Confirm Administered Dose 50 mg .ROUTE .STK-MED ONE Stop: 04/25/18 21:44 Fentanyl (Sublimaze) Confirm Administered Dose 100 mcg .ROUTE .STK-MED ONE Stop: 04/25/18 22:16 Tranexamic Acid 1,000 mg/ (Sodium Chloride) 110 mls @ 660 mls/hr IV ONETIME PRN PRN Reason: Bleeding Lactated Ringer's (Ringers, Lactated) 1,000 mls @ 150 mls/hr IV ASDIRECTED [facility] Last Admin: 04/25/18 21:18 Dose: 999 mls/hr Oxytocin/Sodium Chloride (Oxytocin 30 Unit/500 Ml-Ns) 30 unit in 500 mls @ 999 mls/hr IV TITRATE RENÉ Cefazolin Sodium/Dextrose 2 gm (/ Premix) 50 mls @ 100 mls/hr IV ONETIME ONE Stop: 04/25/18 21:31 Oxytocin/Sodium Chloride (Oxytocin 30 Unit/500 Ml-Ns) 30 unit in 500 mls @ 250 mls/hr IV TITRATE [facility] Lactated Ringer's (Ringers, Lactated) 1,000 mls @ 500 mls/hr IV .BOLUS RENÉ Sodium Chloride (Normal Saline) Confirm Administered Dose 20 mls @ as directed .ROUTE .STK-MED ONE Stop: 04/25/18 21:44 Sodium Chloride (Normal Saline) Confirm Administered Dose 20 mls @ as directed .ROUTE .STK-MED ONE Stop: 04/25/18 21:44 Ketorolac Tromethamine (Toradol) 30 mg IVPUSH Q6H RENÉ Stop: 04/26/18 23:01 Last Admin: 04/26/18 23:26 Dose: 30 mg Lidocaine HCl (Xylocaine 1%) 50 ml INJECT .ONCE PRN PRN Reason: Laceration repair Methylergonovine Maleate (Methergine) 0.2 mg IM ASDIRECTED PRN PRN Reason: Post Hemorrhage Metoclopramide HCl (Reglan) Confirm Administered Dose 10 mg .ROUTE .STK-MED ONE Stop: 04/25/18 22:20 Misoprostol (Cytotec) 200 mcg PO .ONCE PRN PRN Reason: Post Hemorrhage Morphine Sulfate (Duramorph Pf) Confirm Administered Dose 1 mg .ROUTE .STK-MED ONE Stop: 04/25/18 21:44 Nalbuphine HCl (Nubain) 10 mg IVPUSH Q1H PRN PRN Reason: Pain (severe 7-10) Naloxone HCl (Narcan) 0.1 mg IVPUSH ONETIME PRN PRN Reason: Respiratory Depression Stop: 04/26/18 21:59 Ondansetron HCl (Zofran) Confirm Administered Dose 4 mg .ROUTE .STK-MED ONE Stop: 04/25/18 21:44 Oxytocin (Pitocin) Confirm Administered Dose 20 unit .ROUTE .STK-MED ONE Stop: 04/25/18 21:44 Sodium Chloride (Saline Flush) 10 ml FLUSH ASDIRECTED PRN PRN Reason: Keep Vein Open Sodium Chloride (Saline Flush) 2.5 ml FLUSH ASDIRECTED PRN PRN Reason: Keep Vein Open Sodium Chloride (Saline Flush) 10 ml FLUSH ASDIRECTED PRN PRN Reason: Keep Vein Open Sodium Chloride (Saline Flush) 2.5 ml FLUSH ASDIRECTED PRN PRN Reason: Keep Vein Open Sterile Water (Sterile Water For Irrigation) 1,000 ml IRR ASDIRECTED PRN PRN Reason: delivery - Exam General: Reports: Alert, Oriented, Cooperative, No Acute Distress Lungs: Reports: Clear to Auscultation, Normal Respiratory Effort Cardiovascular: Reports: Regular Rate, Regular Rhythm, No Murmurs GI/Abdominal Exam: Normal Bowel Sounds, Soft, Non-Tender, No Organomegaly, No Distention, No Abnormal Bruit, No Mass, Pelvis Stable (Female) Exam: Vaginal Bleeding Rectal (Female) Exam: Deferred Back Exam: Reports: Normal Inspection, Full Range of Motion Extremities: Normal Inspection, Normal Range of Motion, Non-Tender, Normal Capillary Refill, Pedal Edema Skin: Reports: Warm, Dry, Intact Wound/Incisions: Reports: Healing Well, No Drainage Neurological: Reports: No New Focal Deficit, Normal Gait, Normal Speech, Normal Tone, Strength Equal Bilateral Psy/Mental Status: Reports: Alert, Normal Affect, Normal Mood
== END 2018-04-28 12:30 | disposition home or self-care (01) | DRG 540 ==
LOC: MW.OBCHECK 17:06 → MW.OB 17:08 → MW.OBCHECK 17:40 → OBSVTOIN 21:54 → MW.OB 21:55
PROVIDERS: ADMIT Obstetrics & Gynecology; ATTEND Obstetrics & Gynecology
PROC: 10D00Z1 Extraction of Products of Conception, Low, Open Approach (ICD-10-PCS; principal; 2018-04-25)
DX: O24.425 Gestational diabetes mellitus in childbirth, controlled by oral hypoglycemic drugs (principal); O40.3XX0 Polyhydramnios, third trimester, not applicable or unspecified; O36.63X0 Maternal care for excessive fetal growth, third trimester, not applicable or unspecified; Z3A.37 37 weeks gestation of pregnancy; Z37.0 Single live birth
CPT/HCPCS: 36415; 59025; 82803; 82962; 83036; 85014; 85018; 85027; 86850; 86900; 86901; 88307; A9270-GY; J0690; J1200; J1885; J2274; J2405; J2590; J2765; J3010; J7120

== ENCOUNTER 2018-07-01 12:48 | Emergency (ER) | payer BC, OTHER ==
--- NOTE | 2018-07-01 14:15 | EDM.PDOC ---
ED HPI GENERAL MEDICAL PROBLEM - General Chief Complaint: General Stated Complaint: PT SPOKE TO NURSE Time Seen by Provider: 07/01/18 14:11 Source of Information: Reports: Patient History Limitations: Reports: No Limitations - History of Present Illness INITIAL COMMENTS - FREE TEXT/NARRATIVE: HISTORY AND PHYSICAL: History of present illness: Patient is a 33-year-old female here with complaint of dental abscess x 4 days. She states that she saw her dentist this morning and her dentist states there is nothing she can do for her and advised to come to the ER for IV antibiotics. States that she has been taking oral Augmentin for the last 2 days and has 8 days left. Patient says she feels like the swelling is going down into her neck. She denies any fevers, chills, malaise, neck stiffness, drooling, dysphagia, difficulty to breathing. Review of systems: As per history of present illness and below otherwise all systems reviewed and negative. Past medical history: As per history of present illness and as reviewed below otherwise noncontributory. Surgical history: As per history of present illness and as reviewed below otherwise noncontributory. Social history: No reported history of drug or alcohol abuse. Family history: As per history of present illness and as reviewed below otherwise noncontributory. Physical exam: General: Patient sitting comfortably in no acute distress and nontoxic appearing HEENT: Patient has swelling to the right side of the lower jaw, there is no swelling noted in her neck. There is no erythema, induration, fluctuance or warmth of the jaw, cheek, or neck. Patient does have some erythema of the right lower molars, and pain to percussion of the second right lower molar. normocephalic, pupils reactive, negative for conjunctival pallor or scleral icterus, mucous membranes moist, throat clear, neck supple, nontender, trachea midline. No meningeal signs. Lungs: Clear to auscultation, breath sounds equal bilaterally, chest nontender. Heart: S1S2, regular, negative for clicks, rubs, or overt murmur. Abdomen: Soft, nondistended, nontender. Negative for masses or hepatosplenomegaly. Negative for costovertebral tenderness. Pelvis: Stable nontender. Genitourinary: Deferred. Rectal: Deferred. Extremities: Atraumatic, negative for cords or calf pain. Neurovascular unremarkable. Neuro: Awake, alert, oriented. Cranial nerves II through XII unremarkable. Cerebellum unremarkable. Motor and sensory unremarkable throughout. Exam nonfocal. Notes: Diagnostics: CBC, CMP Therapeutics: 1g Rocephin IM Prescriptions: None - continue Augmentin Impression: Dental abscess Plan: 1. Continue antibiotic as directed 2. Follow up with dentist 3 Return to ED as needed as discussed Definitive disposition and diagnosis as appropriate pending reevaluation and review of above. 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: Musculoskeletal History: Reports: None Neurological History: Reports: None Psychiatric History: Reports: None Endocrine/Metabolic History: Reports: Diabetes, Gestational Hematologic History: Reports: None Immunologic History: Reports: None Oncologic (Cancer) History: Reports: None Dermatologic History: Reports: None - Infectious Disease History Infectious Disease History: Reports: Chicken Pox - Past Surgical History Head Surgeries/Procedures: Reports: None HEENT Surgical History: Reports: None Cardiovascular Surgical History: Reports: None Respiratory Surgical History: Reports: None GI Surgical History: Reports: None Female Surgical History: Reports: None Endocrine Surgical History: Reports: None Neurological Surgical History: Reports: None Musculoskeletal Surgical History: Reports: None Oncologic Surgical History: Reports: None Dermatological Surgical History: Reports: None Social & Family History - Family History Family Medical History: Noncontributory - Tobacco Use Smoking Status *Q: Current Every Day Smoker Years of Tobacco use: 18 Packs/Tins Daily: 1 - Caffeine Use Caffeine Use: Reports: Coffee - Recreational Drug Use Recreational Drug Use: No ED ROS GENERAL - Review of Systems Review Of Systems: ROS reveals no pertinent complaints other than HPI. ED EXAM, GENERAL - Physical Exam Exam: See Below (see dictation) Course - Vital Signs Last Recorded V/S: Last Vital Signs Temp 36.4 C 07/01/18 13:56 Pulse 80 07/01/18 13:56 Resp 18 07/01/18 13:56 BP 144/100 H 07/01/18 13:56 Pulse Ox 97 07/01/18 13:56 - Orders/Labs/Meds Orders: Active Orders 24 hr Category Date Time Status cefTRIAXone [Rocephin] 1,000 mg Med 07/01/18 14:45 Ordered Lidocaine 1% [Xylocaine-MPF 1%] 4 ml IM ONETIME Labs: Laboratory Tests 07/01/18 07/01/18 Range/Units 14:11 14:11 WBC 10.52 (4.0-11.0) K/uL RBC 5.12 (4.30-5.90) M/uL Hgb 14.6 (12.0-16.0) g/dL Hct 43.1 (36.0-46.0) % MCV 84.2 (80.0-98.0) fL MCH 28.5 (27.0-32.0) pg MCHC 33.9 (31.0-37.0) g/dL RDW Std Deviation 42.8 (28.0-62.0) fl RDW Coeff of Fuentes 14 (11.0-15.0) % Plt Count 284 (150-400) K/uL MPV 9.80 (7.40-12.00) fL Neut % (Auto) 67.6 (48.0-80.0) % Lymph % (Auto) 20.1 (16.0-40.0) % [place] % (Auto) 9.8 (0.0-15.0) % Eos % (Auto) 2.2 (0.0-7.0) % Baso % (Auto) 0.3 (0.0-1.5) % Neut # (Auto) 7.1 H (1.4-5.7) K/uL Lymph # (Auto) 2.1 (0.6-2.4) K/uL [place] # (Auto) 1.0 H (0.0-0.8) K/uL Eos # (Auto) 0.2 (0.0-0.7) K/uL Baso # (Auto) 0.0 (0.0-0.1) K/uL Nucleated RBC % 0.0 /100WBC Nucleated RBCs # 0 K/uL Sodium 137 (136-145) mmol/L Potassium 4.1 (3.5-5.1) mmol/L Chloride 103 (98-107) mmol/L Carbon Dioxide 25.8 (21.0-32.0) mmol/L BUN 13 (7.0-18.0) mg/dL Creatinine 0.8 (0.6-1.0) mg/dL Est Cr Clr Drug Dosing 86.37 mL/min Estimated GFR (MDRD) > 60.0 ml/min Glucose 112 H (74-106) mg/dL Calcium 9.5 (8.5-10.1) mg/dL Total Bilirubin 0.3 (0.2-1.0) mg/dL AST 20 (15-37) IU/L ALT 41 (14-63) IU/L Alkaline Phosphatase 96 (46-116) U/L Total Protein 8.0 (6.4-8.2) g/dL Albumin 4.1 (3.4-5.0) g/dL Globulin 3.9 H (2.0-3.5) g/dL Albumin/Globulin Ratio 1.1 L (1.3-2.8) Departure - Departure Time of Disposition: 14:46 Disposition: Home, Self-Care 01 Condition: Good Clinical Impression: Dental abscess - Discharge Information Referrals: Gerhard Lazo MD [Primary Care Provider] - Forms: ED Department Discharge Additional Instructions: The following information is given to patients seen in the emergency department who are being discharged to home. This information is to outline your options for follow-up care. We provide all patients seen in our emergency department with a follow-up referral. The need for follow-up, as well as the timing and circumstances, are variable depending upon the specifics of your emergency department visit. If you don't have a primary care physician on staff, we will provide you with a referral. We always advise you to contact your personal physician following an emergency department visit to inform them of the circumstance of the visit and for follow-up with them and/or the need for any referrals to a consulting specialist. The emergency department will also refer you to a specialist when appropriate. This referral assures that you have the opportunity for follow-up care with a specialist. All of these measure are taken in an effort to provide you with optimal care, which includes your follow-up. Under all circumstances we always encourage you to contact your private physician who remains a resource for coordinating your care. When calling for follow-up care, please make the office aware that this follow-up is from your recent emergency room visit. If for any reason you are refused follow-up, please contact the [facility] Emergency Department at and asked to speak to the emergency department charge nurse. [facility] [address] [place] [id number] [address] 1. Continue antibiotic as directed 2. Follow up with dentist 3 Return to ED as needed as discussed - My Orders Last 24 Hours: My Active Orders 07/01/18 14:45 cefTRIAXone [Rocephin] 1,000 mg Lidocaine 1% [Xylocaine-MPF 1%] 4 ml IM ONETIME - Assessment/Plan Last 24 Hours: My Active Orders 07/01/18 14:45 cefTRIAXone [Rocephin] 1,000 mg Lidocaine 1% [Xylocaine-MPF 1%] 4 ml IM ONETIME
[2018-07-01 14:39] LABS: CHLORIDE,CL 103 mmol/L (98-107); SODIUM,NA 137 mmol/L (136-145)
[2018-07-01] MEDS ORDERED: cefTRIAXone 1,000 MG in Lidocaine 1% 4 ML IM ONE (14:45)
[2018-07-01] MEDS ORDERED: cefTRIAXone 1,000 MG VIAL ONE (14:46)
[2018-07-01 15:04] VITALS: BP 142/96
== END 2018-07-01 14:56 | disposition home or self-care (01) ==
LOC: MW.ED 12:48
DX: K04.7 Periapical abscess without sinus (principal); F17.210 Nicotine dependence, cigarettes, uncomplicated
CPT/HCPCS: 36415; 80053; 85025; 96372; 99283; J0696; J2001

== ENCOUNTER 2019-03-03 09:03 | Day surgery (SDC) | payer BC, OTHER ==
[~2019-03-03 09:03] MED LIST: Lactated Ringers 1,000 ML IV SCH; Sodium Chloride 0.9% 10 ML SDV IV PRN; Sodium Chloride 0.9% 10 ML Syringe FLUSH PRN; Sodium Chloride 0.9% 2.5 ML Syringe FLUSH PRN
[2019-03-03] MEDS ORDERED: Propofol 200 MG/20 ML SDV ONE ×2 (10:06→10:41)
[2019-03-03] MEDS ORDERED: fentaNYL 100 MCG/2 ML SDV ONE (10:25)
--- NOTE | 2019-03-03 10:33 | PCM.PREANE ---
Preanesthetic Assessment - Anesthesia/Transfusion/Family Hx Anesthesia History: Prior Anesthesia Without Reaction Family History of Anesthesia Reaction: No Transfusion History: No Prior Transfusion(s) Intubation History: Unknown - Review of Systems General: No Symptoms Pulmonary: No Symptoms Cardiovascular: No Symptoms Gastrointestinal: No Symptoms Neurological: No Symptoms Other: Reports: None - Physical Assessment NPO Status Date: 03/02/19 NPO Status Time: 19:00 O2 Sat by Pulse Oximetry: 95 Respiratory Rate: 16 Vital Signs: Last Vital Signs Temp 96.1 F 03/03/19 09:20 Pulse 87 03/03/19 09:20 Resp 16 03/03/19 09:20 BP 116/86 03/03/19 09:20 Pulse Ox 95 03/03/19 09:20 Height: 5 ft 4 in Weight: 97.976 kg ASA Class: 2 Mental Status: Alert & Oriented x3 Airway Class: Mallampati = 2 Dentition: Reports: Normal Dentition ROM/Head Extension: Full Lungs: Clear to Auscultation, Normal Respiratory Effort Cardiovascular: Regular Rate, Regular Rhythm - Lab Values: Laboratory Last Values Urine HCG, Qual NEGATIVE (NEGATIVE) 03/03/19 09:15 - Allergies Allergies/Adverse Reactions: Allergies Allergy/AdvReac Type Severity Reaction Status Date / Time No Known Allergies Allergy Verified 02/25/19 09:14 - Blood Blood Available: No - Anesthesia Plan Pre-Op Medication Ordered: None, Other - Acknowledgements Anesthesia Type Planned: General Anesthesia Pt an Appropriate Candidate for the Planned Anesthesia: Yes Alternatives and Risks of Anesthesia Discussed w Pt/Guardian: Yes Pt/Guardian Understands and Agrees with Anesthesia Plan: Yes Additional Comments: anesth prob list: smoker, obesity PLAN: tiva PreAnesthesia Questionnaire HEENT History: Reports: None Cardiovascular History: Reports: None Respiratory History: Reports: None Gastrointestinal History: Reports: Other (See Below) Other Gastrointestinal History: occasional heartburn Genitourinary History: Reports: Renal Calculus Other Genitourinary History: kidney stones x4, passed them 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: Musculoskeletal History: Reports: Back Pain, Chronic, Osteoarthritis Neurological History: Reports: None Psychiatric History: Reports: Anxiety Endocrine/Metabolic History: Reports: Diabetes, Gestational, Obesity/BMI 30+ Hematologic History: Reports: None Immunologic History: Reports: None Oncologic (Cancer) History: Reports: None Dermatologic History: Reports: None - Infectious Disease History Infectious Disease History: Reports: Chicken Pox - Past Surgical History Head Surgeries/Procedures: Reports: None HEENT Surgical History: Reports: None Cardiovascular Surgical History: Reports: None Respiratory Surgical History: Reports: None GI Surgical History: Reports: None Female Surgical History: Reports: Section Endocrine Surgical History: Reports: None Neurological Surgical History: Reports: None Musculoskeletal Surgical History: Reports: None Oncologic Surgical History: Reports: None Dermatological Surgical History: Reports: None - SUBSTANCE USE Smoking Status *Q: Current Every Day Smoker Tobacco Use Within Last Twelve Months: Cigarettes Recreational Drug Use History: No - HOME MEDS Home Medications: Home Meds Citalopram Hydrobromide [Celexa] 20 mg PO DAILY 02/25/19 [History] Phentermine HCl 37.5 mg PO QAM 02/25/19 [History] - CURRENT (IN HOUSE) MEDS Current Meds: Current Medications Lactated Ringer's (Ringers, Lactated) 1,000 mls @ 125 mls/hr IV ASDIRECTED RENÉ Last Admin: 03/03/19 09:30 Dose: 125 mls/hr Sodium Chloride (Saline Flush) 10 ml FLUSH ASDIRECTED PRN PRN Reason: Keep Vein Open Sodium Chloride (Saline Flush) 2.5 ml FLUSH ASDIRECTED PRN PRN Reason: Keep Vein Open Sodium Chloride (Normal Saline) 10 ml IV ASDIRECTED PRN PRN Reason: IV Use Discontinued Medications Fentanyl (Sublimaze) Confirm Administered Dose 100 mcg .ROUTE .STK-MED ONE Stop: 03/03/19 10:26 Propofol (Diprivan 20 Ml) Confirm Administered Dose 200 mg .ROUTE .STK-MED ONE Stop: 03/03/19 10:07
--- NOTE | 2019-03-03 11:19 | PCM.OPNOTE ---
- General Post-Op/Procedure Note Date of Surgery/Procedure: 03/03/19 Operative Procedure(s): EGD Findings: Tiny hiatal hernia Pre Op Diagnosis: Epigastric pain Post-Op Diagnosis: Hiatal hernia Anesthesia Technique: NEREIDA Primary Surgeon: Chata Tinajero Condition: Good
[2019-03-03 11:38] VITALS: BP 123/85
--- NOTE | 2019-03-03 11:57 | PCM.POSTAN ---
POST ANESTHESIA ASSESSMENT - MENTAL STATUS Mental Status: Alert, Oriented - RESPIRATORY Respiratory Status: Respiratory Rate WNL, Airway Patent, O2 Saturation Stable - CARDIOVASCULAR CV Status: Pulse Rate WNL, Blood Pressure Stable - GASTROINTESTINAL GI Status: No Symptoms - POST OP HYDRATION Hydration Status: Adequate & Stable
--- NOTE | 2019-03-03 12:19 | OR ---
SURGEON: CHATA TINAJERO MD DATE OF PROCEDURE: 03/03/2019 PREOPERATIVE DIAGNOSIS: Epigastric pain. POSTOPERATIVE DIAGNOSIS: Hiatal hernia. PROCEDURE PERFORMED: Diagnostic EGD with biopsy. PRIMARY SURGEON: Chata Tinajero MD. ANESTHESIA: MAC. INSTRUMENT USED: Olympus endoscope. EXTENT OF EXAM: To the second portion of duodenum. PREPARATION: Good. LIMITATIONS: None. INDICATION FOR EXAMINATION: The patient is a 33-year-old female who has been having epigastric pain ever since the of her last child. The patient and I discussed the need for a diagnostic EGD. I explained the procedure, expected perioperative course, and risks including bleeding, infection, or damage to surrounding structures including perforation. The patient verbalized understanding and wishes to proceed. PROCEDURE IN DETAIL: The patient was brought to the endoscopy suite and placed in a beach chair position. A time-out was completed verifying the patient's name, age, date of , allergies, and procedure to be performed. A bite block was placed in the patient's mouth. Monitored anesthesia care was induced and continuous oxygen was provided via nasal cannula throughout the procedure. After adequate sedation was achieved, a well-lubricated endoscope was placed in the patient's mouth and advanced under direct visualization to the second portion of duodenum. This appeared normal and a photograph was taken. The scope was fully withdrawn while examining the color, texture, anatomy, and integrity of the mucosa of the upper GI tract. The duodenum appeared normal. The scope was brought into the stomach and a photograph was taken of the GE junction as well as the pylorus. The pylorus appeared normal, but the GE junction showed evidence of a tiny hiatal hernia. The gastric mucosa appeared normal. Biopsies were taken of the gastric antrum, body, and fundus and sent for histologic review and H. pylori testing. The scope was brought into the distal esophagus. A photograph was taken of the Z-line. The patient did not appear to have distal esophagitis, but a biopsy was taken 1 cm above the Z-line and sent to Pathology labeled as esophagus. The remainder of the esophageal mucosa was free of pathology. The scope was removed and the procedure terminated. The patient tolerated the procedure well and was taken to PACU in stable condition. ENDOSCOPIC DIAGNOSIS: Hiatal hernia. RECOMMENDATIONS: Follow up in clinic in 2 weeks. SHEILA HUTCHISON /[id number]
== END 2019-03-03 11:46 | disposition home or self-care (01) ==
LOC: MW.SDS 09:03
PROVIDERS: ATTEND Surgery
DX: K20.9 Esophagitis, unspecified (principal); K29.50 Unspecified chronic gastritis without bleeding; K44.9 Diaphragmatic hernia without obstruction or gangrene; F17.210 Nicotine dependence, cigarettes, uncomplicated; M19.90 Unspecified osteoarthritis, unspecified site; F41.9 Anxiety disorder, unspecified; E66.9 Obesity, unspecified; Z68.37 Body mass index [BMI] 37.0-37.9, adult; Z79.899 Other long term (current) drug therapy
CPT/HCPCS: 43239; 81025; J2001; J2704; J3010; J7120